=== PATIENT | male | born 1980 | race Caucasian/White ===

== ENCOUNTER 2018-11-25 18:11 | Emergency (ER) | payer BC, OTHER ==
[~2018-11-25] VITALS: Ht 162.6 cm; Wt 137.0 kg
[2018-11-25 18:19] VITALS: BP 144/89
--- NOTE | 2018-11-25 18:28 | NUR ---
Patient ambulated to bed 5. RN evaluating patient at bedside.
--- NOTE | 2018-11-25 18:29 | NUR ---
C/O SOB/PALPATATIONS 30 MINS AGO. +DIZZINESS, + NAUSEA. NO MED HX. . DENIES V/D; SKIN IS PINK/WARM/DRY; AAOX4 WITH EVEN AND STEADY GAIT; LUNGS CLEAR BL; HR EVEN AND REGULAR; PT DENIES ANY FEVER, CP OR COUGH AT THIS TIME; PATIENT STATES PAIN OF 0/10 AT THIS TIME; VSS; PATIENT POSITIONED FOR COMFORT; HOB ELEVATED; BEDRAILS UP X2; BED DOWN. ER MD MADE AWARE OF PT STATUS.PT WAS WORRIED DUE TO PT HAS FAMILY HX: STROKE.
--- NOTE | 2018-11-25 19:02 | NUR ---
Dr. Samuels examining patient.
--- NOTE | 2018-11-25 19:08 | NUR ---
ENDORSE CARE TO PM SHIFT RN.
[2018-11-25] MEDS ORDERED: KETOROLAC 60 MG/2 ML VIAL IM ONE (19:20)
[2018-11-25 19:44] LABS: BASOPHILS # (AUTO) 0.1 K/uL (0.00-0.22); BASOPHILS % (AUTO) 0.7 % (0.0-2.0); EOSINOPHILS # (AUTO) 0.1 K/uL (0-0.4); EOSINOPHILS % (AUTO) 1.9 % (0.0-4.0); HEMATOCRIT 50.6 % (36-52); HEMOGLOBIN 17.8 g/dL (12.0-18.0); LYMPHOCYTES # (AUTO) 1.8 K/uL (2.0-11.5); MEAN CORPUSCULAR HEMOGLOBIN 31 pg (27-31); MEAN CORPUSCULAR HGB CONC 35 g/dL (33-37); MONOCYTES # (AUTO) 0.5 K/uL (0.8-1.0); MONOCYTES % (AUTO) 7.1 % (1.7-9.3); NEUTROPHILS # (AUTO) 4.6 K/uL (1.8-7.7); NEUTROPHILS % (AUTO) 64.3 % (42.2-75.2); PLATELET COUNT (AUTO) 220 K/uL (140-450); RED BLOOD CELL COUNT(AUTO) 5.68 MIL/uL (4.20-6.10); RED CELL DISTRIBUTION WIDTH 13.9 % (11.6-13.7); WHITE BLOOD COUNT (AUTO) 7.1 K/uL (4.8-10.8)
[2018-11-25 20:32] LABS: ANION GAP 15.5 (8-16); CARBON DIOXIDE 25.2 mmol/L (21-32); CREATININE 0.8 mg/dL (0.7-1.3); POTASSIUM 3.7 mmol/L (3.5-5.1)
[2018-11-25 21:15] VITALS: BP 117/70
--- NOTE | 2018-11-25 21:15 | NUR ---
DIACHARGE PAPERS GIVEN TO PT. PT STATES 5/10 PAIN BUT TOLLERABLE. VSS. PROVIDED WITH LABS TO TAKE TO PCP. INSTRUCTED TO F/U WITH PCP AND WHEN TO RETURN TO ER. PT VERBALLIZED UNDERSTANDING OF DC INSTRUCTIONS. ALL QUESTIONS ANSWERED.
== END 2018-11-25 21:15 | disposition home or self-care (01) ==
LOC: MED 18:11
DX: S93.402A Sprain of unspecified ligament of left ankle, initial encounter (principal); R07.89 Other chest pain; Z88.0 Allergy status to penicillin; Y93.39 Activity, other involving climbing, rappelling and jumping off; Y93.K1 Activity, walking an animal; Y92.89 Other specified places as the place of occurrence of the external cause; Y99.8 Other external cause status
CPT/HCPCS: 36415; 71045; 73610; 80048; 84484; 85025; 93005; 96372; 99284; J1885; Q0092